=== PATIENT | male | born 1965 | race Caucasian/White ===

== ENCOUNTER 2018-08-28 09:22 | Outpatient (CLI) | payer BC ==
[2018-08-28 11:07] LABS: #Basophils 0.1 thou/uL (0.0-0.2); #Eosinphils 0.5 thou/uL (0.0-0.7); #Lymphocytes 2.4 thou/uL (1.20-3.40); #Monocytes 0.6 thou/uL (0.11-0.59); #Neutrophils 4.7 thou/uL (1.40-6.50); %Eosinophils 6.2 % (0.0-10.0); %Monocytes 6.7 % (0.0-10.0); %Neutrophils 57.1 % (42.0-75.0); Hemoglobin 18.1 g/dL (14.0-18.0); Mean Corpuscular HGB CONC 31.7 g/dL (32.0-36.0); Mean Corpuscular Hemoglobin 30.7 pg (27.0-31.0); Mean Corpuscular Volume 96.9 fL (78.0-98.0); Mean Platelet Volume 7.4 fL (7.4-10.4); Platelet Count 282 thou/uL (130-400); RBC Distribution Width 12.7 % (11.5-14.5); Red Blood Cell (RBC) Count 5.89 mill/uL (4.70-6.10); White Blood Cell (WBC) Count 8.1 thou/uL (4.8-10.8)
--- NOTE | 2018-08-28 15:02 | EKG ---
Test Reason : Blood Pressure : / mmHG Vent. Rate : 066 BPM Atrial Rate : 066 BPM P-R Int : 148 ms QRS Dur : 092 ms QT Int : 378 ms P-R-T Axes : 059 086 022 degrees QTc Int : 396 ms Normal sinus rhythm Normal ECG No previous ECGs available Confirmed by DR. Sonia MILES ([id number]) on 08/28/2018 3:01:51 PM Referred By: GARRET Confirmed By:DR. Sonia MILES
== END 2018-08-28 09:23 | disposition home or self-care (01) ==
LOC: LABBT 09:22
PROVIDERS: ATTEND Surgery
DX: Z01.818 Encounter for other preprocedural examination (principal); L02.211 Cutaneous abscess of abdominal wall
CPT/HCPCS: 85025; 93005; 93010

== ENCOUNTER 2018-08-29 08:50 | Day surgery (SDC) | payer BC ==
[2018-08-28 09:59] VITALS: BMI 27.4
[2018-08-29] MEDS ORDERED: CEFAZOLIN 2 GM/50 ML BAG ONE (09:45)
[2018-08-29] MEDS ORDERED: Midazolam HCl 2 mg/2 ml Vial ONE (10:48)
[2018-08-29] MEDS ORDERED: Fentanyl 100 MCG/2 ML VIAL ONE (11:29)
[2018-08-29] MEDS ORDERED: Bupivacaine/Epinephrine 0.25% 30 ML VIAL ONE (11:47)
--- NOTE | 2018-08-29 12:13 | OP ---
PREOPERATIVE DIAGNOSIS: Left flank abscess. SURGEON: Benitez Chung M.D. PROCEDURE PERFORMED: Excision and drainage of flank abscess. INDICATIONS: This is a 53-year-old male, feels like he got bit by a spider, developed an infection w ith a central necrotic area that was enlarging despite antibiotics. FINDINGS: A 5 x 2 cm multilocular abscess left flank. PROCEDURE: After informed consent was obtained, the patient was taken to the operating room and give n general endotracheal anesthesia, placed in the supine position. Flank was prepped and draped in us ual fashion. Local anesthesia infiltrated subcutaneously and deep. An elliptical incision was perfo rmed to excise the necrotic area. Subcutaneous divided sharply and it was excised. It was cultured. Hemostasis achieved with electrocautery. It was irrigated with saline, packed open, damp-to-dry wi th saline and sterile gauze. The patient tolerated the procedure well and was transferred to recover y in good condition. Sponge and needle count verified and correct x2.
[2018-08-29] MEDS ORDERED: Ketorolac Tromethamine 30 MG/ML VIAL ONE (17:29)
[2018-08-29] MEDS ORDERED: PROPOFOL 200 MG/20 ML VIAL ONE (17:29)
[2018-08-29] MEDS ORDERED: Ondansetron PF 4 MG/2 ML Vial ONE (17:29)
[2018-08-29] MEDS ORDERED: Dexamethasone 20 MG/5 ML VIAL ONE (17:29)
[2018-08-29] MEDS ORDERED: Lidocaine 1% PF 5 ML VIAL ONE (17:29)
== END 2018-08-29 14:14 | disposition home or self-care (01) ==
LOC: SDC 08:50
PROVIDERS: ATTEND Surgery
PROC: 0JB80ZZ Excision of Abdomen Subcutaneous Tissue and Fascia, Open Approach (ICD-10-PCS; principal; 2018-08-29)
DX: L02.219 Cutaneous abscess of trunk, unspecified (principal); L03.319 Cellulitis of trunk, unspecified; B95.62 Methicillin resistant Staphylococcus aureus infection as the cause of diseases classified elsewhere; G47.33 Obstructive sleep apnea (adult) (pediatric); Z99.89 Dependence on other enabling machines and devices
CPT/HCPCS: 87070; 87077; 87186; 87205; 88304; J1100; J1885; J2001; J2250; J2405; J2704; J3010